=== PATIENT | female | born 1960 | race Caucasian/White ===

== ENCOUNTER → 2016-09-22 | Outpatient (CLI) | payer OTHER ==
[~2016-09-22] MED LIST: FERR55TA PO; LEVO50TA72 PO; METO25TA41 PO; MULT-806 PO; P EP PO; [UNRECOGNIZED DRUG - CODE] PO
== END ==
LOC: WC.BC 14:34
DX: Z12.31 Encounter for screening mammogram for malignant neoplasm of breast (principal)
CPT/HCPCS: 77063; G0202